=== PATIENT | male | born 1940 | race Caucasian/White ===

== ENCOUNTER 2017-01-13 10:29 | Day surgery (SDC) | payer MEDICARE ==
[~2017-01-13 10:29] MED LIST: Buffered Lidocaine 0.9% SYRIN* 5 ML/SYR SYRINGE INTRADERM ONE
[2017-01-13] MEDS ORDERED: ceFAZolin 2 GM PREMIX (*) 50 ML IVPB ONE (11:04)
[2017-01-13] MEDS ORDERED: Bupivacaine 0.25% SDV* 30 ML ONE (12:25)
[2017-01-13] MEDS ORDERED: Lidocaine 1.5% EPI 1:200,000* 30 ML SDV ONE (12:26)
[2017-01-13] MEDS ORDERED: Bupivacaine 0.25% EPI 200,000* 30 ML SDV ONE (12:26)
[2017-01-13] MEDS ORDERED: fentaNYL* 50 MCG/ML 2 ML VIAL (100 MCG VIAL) ONE (12:40)
[2017-01-13] MEDS ORDERED: Midazolam* 1 MG/ML 5 ML VIAL (5 MG) ONE (12:43)
[2017-01-13 13:28] VITALS: BP 110/65
== END 2017-01-13 13:53 | disposition home or self-care (01) ==
LOC: OREAST 10:29
PROVIDERS: ATTEND Plastic Surgery
DX: D03.39 Melanoma in situ of other parts of face (principal); I10 Essential (primary) hypertension
CPT/HCPCS: 88305; 88341; 88342; J0690; J2250; J3010